=== PATIENT | female | born 1945 | race Caucasian/White ===

== ENCOUNTER 2016-12-23 16:15 | Emergency (ER) | payer OTHER ==
[~2016-12-23] VITALS: Ht 160 cm; Wt 105.2 kg
[~2016-12-23 16:15] MED LIST: ALLOPURINOL100 MG PO; ASPIR 8181 MG PO; BILBERRY PO; CARVEDILOL12.5 M1 PO; CIPRO500 MG PO; ECO81 PO; FISH OIL1000 MG PO; FLA500 PO; FLEXERIL10 MG PO; FLONS; FUROSEMIDE40 MG PO; GLIPIZIDE10 MG PO; LANTUS SOLOS100 U/M1 SC; NEU300 PO; NOR10 PO; SIMVASTATIN40 M1 PO
[2016-12-23 18:02] LABS: BASOPHIL % 0.2 % (0-2); RED CELL DISTRIBUTION WIDTH 16.2 % (11.5-14.5)
[2016-12-23 18:03] LABS: PLATELET COUNT 226 x10^3mcL (130-400)
[2016-12-23 18:12] LABS: ALBUMIN 3.6 g/dL (3.4-5.0); BILIRUBIN TOTAL 0.3 mg/dL (0.20-1.00); CALCIUM 9.2 mg/dL (8.5-10.1); CARBON DIOXIDE 25.9 mmol/L (21-32); POTASSIUM SERUM 4.1 mmol/L (3.5-5.1); TOTAL PROTEIN, SERUM 7.7 g/dL (6.4-8.2)
[2016-12-23 18:16] LABS: CREATININE SERUM 4.3 mg/dL (0.6-1.0)
[2016-12-23 19:14] VITALS: BP 175/89
== END 2016-12-23 19:14 | disposition home or self-care (01) ==
LOC: ED 16:15
PROVIDERS: Emergency Medicine
DX: R51 Headache (principal); I12.0 Hypertensive chronic kidney disease with stage 5 chronic kidney disease or end stage renal disease; N18.6 End stage renal disease; R10.84 Generalized abdominal pain; E78.5 Hyperlipidemia, unspecified; M10.9 Gout, unspecified; Z99.2 Dependence on renal dialysis; Z88.5 Allergy status to narcotic agent; Z91.048 Other nonmedicinal substance allergy status
CPT/HCPCS: J1200; J2765

== ENCOUNTER 2017-01-12 17:17 | Emergency (ER) | payer OTHER ==
[2017-01-12 20:45] VITALS: BP 186/92
== END 2017-01-12 20:56 | disposition home or self-care (01) ==
LOC: ED 17:17
DX: R51 Headache (principal); I12.0 Hypertensive chronic kidney disease with stage 5 chronic kidney disease or end stage renal disease; E11.22 Type 2 diabetes mellitus with diabetic chronic kidney disease; N18.6 End stage renal disease; Z99.2 Dependence on renal dialysis; E78.00 Pure hypercholesterolemia, unspecified; Z88.5 Allergy status to narcotic agent
CPT/HCPCS: J1200; J2765

== ENCOUNTER → 2017-05-03 | Outpatient (CLI) | payer OTHER | END | disposition home or self-care (01) | LOC: MA 12:47 | PROC: BH02ZZZ Plain Radiography of Bilateral Breasts (ICD-10-PCS; principal; 2017-05-03) | DX: Z12.31 Encounter for screening mammogram for malignant neoplasm of breast (principal) | CPT/HCPCS: G0202 ==

== ENCOUNTER 2017-07-10 11:22 | Inpatient (IN) | payer OTHER, MEDICAID ==
[~2017-07-10] VITALS: Ht 160 cm; Wt 88.9 kg
[~2017-07-10 11:22] MED LIST changes: -GLIPIZIDE10 MG PO; +GLUCOTROL10 MG
[2017-07-10 11:26] VITALS: Ht 160 cm; Wt 88.9 kg
[2017-07-10 12:18] LABS: BASOPHIL % 0.1 % (0-2); PLATELET COUNT 247 x10^3mcL (130-400)
[2017-07-10 12:20] LABS: RED CELL DISTRIBUTION WIDTH 17.7 % (11.5-14.5)
[2017-07-10 12:29] LABS: ALBUMIN 3.7 g/dL (3.4-5.0); BILIRUBIN TOTAL 0.41 mg/dL (0.20-1.00); CALCIUM 8.7 mg/dL (8.5-10.1); POTASSIUM SERUM 4.8 mmol/L (3.5-5.1); TOTAL PROTEIN, SERUM 8.1 g/dL (6.4-8.2)
[2017-07-10 14:21] LABS: T3 TOTAL 0.89 ng/mL
[2017-07-10 14:36] LABS: CHOLESTEROL/HDL RATIO 3.5; MAGNESIUM 1.5 mg/dL (1.8-2.4); PHOSPHOROUS 4.6 mg/dL (2.5-4.9)
[2017-07-10 14:43] VITALS: BP 132/69
[2017-07-10 14:49] LABS: FREE T4 0.98 ng/dL (0.76-1.46); FREE THYROXINE INDEX 2.7 ug/dL (1.4-4.5); T4(THYROXINE) 8.1 ug/dL (4.7-13.3)
[2017-07-10] MEDS ORDERED: MICARDIS40 MG (15:30)
[2017-07-10 16:08] VITALS: BP 153/59
[2017-07-10 20:34] VITALS: BP 148/66
[2017-07-11 05:12] VITALS: BP 128/54
[2017-07-11 06:28] LABS: CARBON DIOXIDE 26.8 mmol/L (21-32); MAGNESIUM 1.7 mg/dL (1.8-2.4); PHOSPHOROUS 5.8 mg/dL (2.5-4.9); POTASSIUM SERUM 4.5 mmol/L (3.5-5.1)
[2017-07-11 06:33] LABS: CREATININE SERUM 7.2 mg/dL (0.6-1.0)
[2017-07-11 06:35] LABS: BASOPHIL % 0.5 % (0-2); PLATELET COUNT 228 x10^3mcL (130-400)
[2017-07-11 07:07] LABS: RED CELL DISTRIBUTION WIDTH 17.8 % (11.5-14.5)
[2017-07-11 09:06] VITALS: BP 133/96
[2017-07-11 10:09] VITALS: BP 127/58
[2017-07-11 14:13] VITALS: BP 136/61
[2017-07-11 17:10] VITALS: BP 137/59
[2017-07-11 18:27] VITALS: BP 137/59
== END 2017-07-11 19:28 | disposition home or self-care (01) | DRG 562 ==
LOC: ED 11:22 → DU 13:15
PROVIDERS: Emergency Medicine; ADMIT Family Medicine
DX: S29.011A Strain of muscle and tendon of front wall of thorax, initial encounter (principal); K85.90 Acute pancreatitis without necrosis or infection, unspecified; J18.1 Lobar pneumonia, unspecified organism; N18.6 End stage renal disease; N17.0 Acute kidney failure with tubular necrosis; I12.0 Hypertensive chronic kidney disease with stage 5 chronic kidney disease or end stage renal disease; Z68.41 Body mass index [BMI] 40.0-44.9, adult; Z88.6 Allergy status to analgesic agent; I10 Essential (primary) hypertension; Z86.73 Personal history of transient ischemic attack (TIA), and cerebral infarction without residual deficits; E78.5 Hyperlipidemia, unspecified; E11.22 Type 2 diabetes mellitus with diabetic chronic kidney disease; Z99.2 Dependence on renal dialysis; Z95.1 Presence of aortocoronary bypass graft; I25.10 Atherosclerotic heart disease of native coronary artery without angina pectoris; E11.40 Type 2 diabetes mellitus with diabetic neuropathy, unspecified; Z90.710 Acquired absence of both cervix and uterus; Z90.49 Acquired absence of other specified parts of digestive tract; M10.9 Gout, unspecified; E66.01 Morbid (severe) obesity due to excess calories; E83.42 Hypomagnesemia; E11.65 Type 2 diabetes mellitus with hyperglycemia; Z79.82 Long term (current) use of aspirin; Z79.4 Long term (current) use of insulin
CPT/HCPCS: 82962; 83880; 84439; 87046; 87046-59; J2405; J2543; J3010; J3490; J7030; J7040; Q0092

== ENCOUNTER 2018-04-27 22:35 | Emergency (ER) | payer OTHER ==
[~2018-04-27 22:35] MED LIST changes: +GABAPENTIN100 M2 PO; +LOMOTIL1 TAB PO; +MECLIZINE HYDRO25 M1 PO; +MICARDIS40 MG; +ONDANSETRON4 M3 PO; +RENVELA800 M1 PO
[2018-04-27 22:44] VITALS: BP 145/57
== END 2018-04-28 00:03 | disposition home or self-care (01) ==
LOC: ED 22:35
DX: R05 Cough (principal); E11.22 Type 2 diabetes mellitus with diabetic chronic kidney disease; I12.0 Hypertensive chronic kidney disease with stage 5 chronic kidney disease or end stage renal disease; N18.6 End stage renal disease; E78.5 Hyperlipidemia, unspecified; Z88.5 Allergy status to narcotic agent; R11.2 Nausea with vomiting, unspecified
CPT/HCPCS: Q0162

== ENCOUNTER → 2018-06-23 | Outpatient (CLI) | payer OTHER | END | disposition home or self-care (01) | LOC: MA 08:43 | PROC: BH02ZZZ Plain Radiography of Bilateral Breasts (ICD-10-PCS; principal; 2018-06-23) | DX: Z12.39 Encounter for other screening for malignant neoplasm of breast (principal) | CPT/HCPCS: 77067 ==

== ENCOUNTER 2018-08-25 08:23 | Emergency (ER) | payer OTHER ==
[~2018-08-25] VITALS: Ht 160 cm; Wt 106.6 kg
[2018-08-25 08:37] VITALS: Ht 160 cm; Wt 106.6 kg
[2018-08-25 09:20] VITALS: BP 162/77
== END 2018-08-25 10:37 | disposition home or self-care (01) ==
LOC: ED 08:23
DX: J02.9 Acute pharyngitis, unspecified (principal); R30.0 Dysuria; I12.0 Hypertensive chronic kidney disease with stage 5 chronic kidney disease or end stage renal disease; E11.22 Type 2 diabetes mellitus with diabetic chronic kidney disease; N18.6 End stage renal disease; M10.9 Gout, unspecified; E78.5 Hyperlipidemia, unspecified; Z88.5 Allergy status to narcotic agent; Z99.2 Dependence on renal dialysis; Z86.73 Personal history of transient ischemic attack (TIA), and cerebral infarction without residual deficits
CPT/HCPCS: Q0092

== ENCOUNTER 2018-10-23 19:44 | Emergency (ER) | payer OTHER ==
[~2018-10-23] VITALS: Ht 160 cm; Wt 107.0 kg
[2018-10-23 19:51] VITALS: Ht 160 cm; Wt 107.0 kg
[2018-10-23 21:04] LABS: BASOPHIL % 0.6 % (0-2); PLATELET COUNT 229 x10^3mcL (130-400)
[2018-10-23 21:05] LABS: RED CELL DISTRIBUTION WIDTH 16.5 % (11.5-14.5)
[2018-10-23 21:19] LABS: ALBUMIN 3.9 g/dL (3.4-5.0); BILIRUBIN TOTAL 0.33 mg/dL (0.20-1.00); CALCIUM 8.5 mg/dL (8.5-10.1); CARBON DIOXIDE 29.9 mmol/L (21-32); POTASSIUM SERUM 5.2 mmol/L (3.5-5.1); TOTAL PROTEIN, SERUM 7.6 g/dL (6.4-8.2)
[2018-10-23 21:21] LABS: CREATININE SERUM 8.4 mg/dL (0.6-1.0)
[2018-10-23 22:21] VITALS: BP 154/59
== END 2018-10-23 22:21 | disposition home or self-care (01) ==
LOC: ED 19:44
PROVIDERS: Emergency Medicine
DX: R06.00 Dyspnea, unspecified (principal); J98.01 Acute bronchospasm; E11.22 Type 2 diabetes mellitus with diabetic chronic kidney disease; I12.0 Hypertensive chronic kidney disease with stage 5 chronic kidney disease or end stage renal disease; N18.6 End stage renal disease; Z88.5 Allergy status to narcotic agent; Z98.890 Other specified postprocedural states
CPT/HCPCS: 36415; 83880; J7613; Q0092

== ENCOUNTER 2019-01-08 12:55 | Inpatient (IN) | payer OTHER ==
[~2019-01-08] VITALS: Ht 160 cm; Wt 110.4 kg
[~2019-01-08 12:55] MED LIST changes: -GLUCOTROL10 MG; +GLUCOTROL10 MG PO
--- NOTE | 2019-01-08 13:18 | NUR ---
PT IN ED FOR DIZZINESS S/P FALL IN BATHROOM X3 DAYS. STS LOSS BALANCE WHILE TRYING TO TAKE OFF PANTS, -LOC. PT SPEAKING IN CLEAR FULL SENTENCES, AWAKE ALERT. AMBULATES WITH CANE.
--- NOTE | 2019-01-08 13:44 | NUR ---
DR. GAINES WAS BEDSIDE TO EXAMINE PT.
--- NOTE | 2019-01-08 13:57 | NUR ---
PT WAS TAKEN TO RADIOLOGY.
[2019-01-08 15:32] LABS: PLATELET COUNT 215 x10^3mcL (130-400); RED CELL DISTRIBUTION WIDTH 17.1 % (11.5-14.5)
[2019-01-08 15:34] LABS: SEGMENTED NEUTROPHILS 64.1 % (37-75)
[2019-01-08 15:35] LABS: BASOPHIL 0.6 % (0-2); MONOCYTE 7.6 % (0-7); rbc morphology (normal/abnorm) NORMAL (NORMAL)
[2019-01-08 15:36] LABS: PLATELET MORPHOLOGY NORMAL
--- NOTE | 2019-01-08 17:00 | NUR ---
PT STATED HUNGRY. SANDWITCH WAS OFFERED. PT ATE WELL.
[2019-01-08 17:26] LABS: ALBUMIN 3.6 g/dL (3.4-5.0); ALKALINE PHOSPHATASE 74 U/L (46-116); ALT/SGPT 19 U/L (14-59); AST/SGOT 9 U/L (15-37); BILIRUBIN TOTAL 0.3 mg/dL (0.20-1.00); CALCIUM 8.5 mg/dL (8.5-10.1); CARBON DIOXIDE 25.3 mmol/L (21-32); CHLORIDE SERUM 102 mmol/L (98-107); SODIUM SERUM 143 mmol/L (136-145); TOTAL PROTEIN, SERUM 7.1 g/dL (6.4-8.2)
[2019-01-08 17:32] LABS: CREATININE SERUM 12.3 mg/dL (0.6-1.0); GLUCOSE SERUM 56 mg/dL (74-106); POTASSIUM SERUM 6.4 mmol/L (3.5-5.1)
--- NOTE | 2019-01-08 19:13 | NUR ---
REPORT RECIEVED FROM REANNA VILA. PT A&O X4, RECIEVING BRETHING TREATMENT. PT ANSWERING QUESTIONS APPROPRIATELY, SPEAKING IN FULL SENTENCES. PT REPORTS 8/10 PAIN IN LEFT LEG AND LOWER BACK. PT SITTING ON BED, IN POSITION OF COMFORT. CALL LIGHT W/IN REACH. NAD NOTED AT THIS TIME.
[2019-01-08] MEDS ORDERED: AMLODIPINE-OLM1 EAC1 (19:42)
--- NOTE | 2019-01-08 19:58 | NUR ---
MURALI SEARCH MARKETING SPECIALIST CALLED TO INQUIRE ABOUT PT STATUS. INFORMED MURALI OF ADMIT ORDER, AND WILL CALL BACK WITH RM ASSIGNMENT WHEN PT GOES UPSTAIRS. [phone]
--- NOTE | 2019-01-08 20:06 | NUR ---
REPORT GIVEN TO LEANNE VILA
--- NOTE | 2019-01-08 20:24 | NUR ---
RECEIVED PT FROM ED VIA GUERNEY, CAME IN DUE TO DIZZINESS. AAOX4. DENIES HEADACHE/DIZZINESS. ABLE TO FOLLOW COMMANDS. NO SOB NOTED, LUNG SOUNDS DIMINISHED, O2 SAT=92%, RA. DENIES CHEST PAIN/PRESSURE, SR W/ ELEVATED T WAVE. DENIES ABDOMINAL PAIN/NAUSEA/VOMITING. PT WENT TO THE BATHROOM HAVING LOOSE STOOLS, STATED THAT SHE JUST RECEIVED KAYEXALATE AT ED. OLIGURIC. W/ RUE AV FISTULA, BRUIT AND THRILL PRESENT. W/ RUE ECCHMOSIS, MANAGER PHP. W/ +1 EDEMA ON BLE. PULSES ARE PALPABLE. INSTRUCTED PT TO PULL THE BATHROOM CALL BUTTON IF SHE'S DONE TO BE ASSISTED BACK TO BED. PT VERBALIZES UNDERSTANDING. ENDORSED TO PRIMARY NURSE LEANNE FOR CONTINUITY OF CARE
[2019-01-08 20:53] VITALS: BP 176/78
[2019-01-08 20:55] VITALS: Ht 160 cm; Wt 110.4 kg
--- NOTE | 2019-01-08 21:11 | NUR ---
DR. EMERSON IS PAGED FOR ADMIT ORDERS. WAITING FOR CALLBACK
--- NOTE | 2019-01-08 21:20 | NUR ---
RECEIVED A CALLBACK FROM DR. EMERSON FOR ADMIT ORDERS, ORDERS CARRIED OUT. PATIENT IS PLACED ON 2LPM/NC, O2 SAT=96%. PRIMARY NURSE LEANNE MADE AWARE OF ABOVE
--- NOTE | 2019-01-09 00:18 | NUR ---
PT RESTING COMFORTABLY IN BED. ENVIRONMENTAL FIELD SERVICES TECHNICIAN AT BEDSIDE PERFORMING HD PER ORDERS. NO ACUTE DISTRESS NOTED. EVEN AND UNLABORED RESPIRATIONS ON 2LNC. ON TELE #1 READING SR 68 WITH SLIGHTLY ELEVATED T WAVE. IVL INTACT. BED IN LOWEST POSITION. SIDE RAILS UP X2. CALL LIGHT WITHIN REACH. WILL CONTINUE TO MONITOR.
--- NOTE | 2019-01-09 02:10 | NUR ---
MADE AWARE BY MT, PT HAVING OCCASIONAL PAC'S. PT CURRENTLY RECEIVING DIALYSIS. NO ACUTE DISTRESS NOTED. NO C/O CHEST PAIN OR PALPITATIONS. LAST DIALYSIS BP: 161/63, HR: 69 BPM. ON 2LNC. NO C/O SOB. WILL INFORM AND CONTINUE TO MONITOR.
--- NOTE | 2019-01-09 02:30 | NUR ---
DIALYSIS COMPLETE. 2.3L TOTAL OUTPUT. PER CASING FLUSHER, DIALYSIS STOPPED SHORT DUE TO PT C/O CRAMPS TO LLE. PRESSURE DRESSING APPLIED BY CASING FLUSHER. DRESSING CDI. NO BLEEDING NOTED. PT RESTING COMFORTABLY IN BED. BED IN LOWEST POSITION. SIDE RAILS UPX2. CALL LIGHT WITHIN REACH. WILL CONTINUE TO MONITOR.
[2019-01-09 02:45] VITALS: BP 129/52
--- NOTE | 2019-01-09 02:45 | NUR ---
PT C/O CRAMPS TO LLE AND BACK PAIN 03/04. WILL MEDICATE PER EMAR. CURRENT VS: 80 BPM, 20 RR, 129/52, 95% ON 3LNC. WILL CONTINUE TO MONITOR.
--- NOTE | 2019-01-09 03:15 | NUR ---
DR. EMERSON MADE AWARE OF PT DIALYSIS OUTPUT, C/O CRAMPS TO LLE AND BACK PAIN, AND OCCASIONAL PAC'S ON TELEMETRY. ORDERED LAB FOR MAGNESIUM AND ULTRAM PRN FOR PAIN. WILL CONTINUE TO MONITOR.
[2019-01-09 05:28] VITALS: BP 153/58
[2019-01-09 06:34] LABS: BASOPHIL % 0.3 % (0-2); PLATELET COUNT 183 x10^3mcL (130-400)
--- NOTE | 2019-01-09 06:37 | NUR ---
FASTING BLOOD SUGAR: 49, RECHECKED 43. PT ASYMPTOMATIC. D10 250ML @250ML/HR GIVEN PER EMAR. APPLE JUICE AND SANDWICH GIVEN. BLOOD SUGAR AFTER D10 FINISHED: 153. PT RESTING COMFORTABLY IN BED. NO ACUTE DISTRESS NOTED. TOLERATING ON 3LNC. ON TELE #1 READING SR78 WITH SLIGHTLY ELEVATED TWAVE AND OCC PAC'S. HD COMPLETE WITH 2.3L OUTPUT, STOPPED SHORT DUE TO C/O LLE CRAMPING. ALL NEEDS TENDED TO AND MET. ALL SCHEDULED MEDICATIONS GIVEN. BACK PAIN MEDICATED PER EMAR. BED IN LOWEST POSITION. SIDE RAILS UPX2. CALL LIGHT WITHIN REACH. WILL ENDORSE TO ONCOMING SHIFT.
[2019-01-09 06:50] LABS: RED CELL DISTRIBUTION WIDTH 17.5 % (11.5-14.5)
[2019-01-09 07:23] LABS: CALCIUM 9.1 mg/dL (8.5-10.1); CARBON DIOXIDE 23.3 mmol/L (21-32); CHLORIDE SERUM 104 mmol/L (98-107); MAGNESIUM 1.6 mg/dL (1.8-2.4); POTASSIUM SERUM 4.3 mmol/L (3.5-5.1); SODIUM SERUM 149 mmol/L (136-145)
--- NOTE | 2019-01-09 07:25 | NUR ---
RECEIVED PT SITTING UP IN THE CHAIR AND SLEEPING. EDUCATED PT RISK OF FALLING. ASSISTED PT LAY BACK IN THE BED. ASSESSED AND DOCUMENTED. DENIES PAIN THIS TIME. SAFTEY PRECAUTIONS ARE IN PLACE. WILL MONITOR.
[2019-01-09 07:29] LABS: GLUCOSE SERUM 45 mg/dL (74-106)
[2019-01-09 07:30] LABS: CREATININE SERUM 8.2 mg/dL (0.6-1.0)
[2019-01-09 08:50] VITALS: BP 146/55
--- NOTE | 2019-01-09 10:30 | NUR ---
CAME AND SPOKE WITH PT. INFORMED ABOUT PT MG=1.6 AND ALSO HE IS AWARE ABOUT ALL OTHER ABNORMAL LABS. NO NEW ORDER RECEIVED THIS TIME.
[2019-01-09 13:13] VITALS: BP 142/85
--- NOTE | 2019-01-09 14:00 | NUR ---
PT RESTING IN BED COMFORTABLY. NO SOB NOTED. DENIES PAIN. FAMILY AT BEDSIDE.
[2019-01-09 18:43] VITALS: BP 142/55
--- NOTE | 2019-01-09 19:15 | NUR ---
PT RESTING IN BED COMFORTABLY. DENIES PAIN. STABLE. NO SOB NOTED. GAVE REPORT TO LEAD ELECTRICIAN NURSE.
--- NOTE | 2019-01-09 19:26 | NUR ---
RECIEVED PT RESTING IN CHAIR AT BEDSIDE WITH NO ACUTE DISTRESS AT THIS TIME, PT IS DROWSY BUT EASILY AROUSABLY TO VERBAL STIMULI PT IS A/OX4 NO COMPLAINTS OF ESCOBAR OR DIZZINESS, ASSESSMENT PERFORMED AT THIS TIME, PT DENIES CHEST PAIN AT THIS TIME, PT DENIES SOB AT THIS TIME, SAFETY PRECAUTIONS IN PLACE INSTRUCTED TO USE CALL LIGHT IF IN NEED, CALL LIGHT IN REACH, WILL CONTINUE TO MONITOR
[2019-01-09 20:50] VITALS: BP 155/60
--- NOTE | 2019-01-09 22:15 | NUR ---
PT SLEEPING IN CHAIR AT THIS TIME, EASILY AROUSABLE, PT DENIES CHEST PAIN AND SOB AT THIS TIME, PT DENIES DIZZONESS OR ESCOBAR, SAFETY PRECAUTIONS IN PLACE, WILL CONTINUE TO MONITOR
--- NOTE | 2019-01-10 00:08 | NUR ---
PT SLEEPING IN BED WITH NO ACUTE RESPIRATORY DISTRESS NOTED AT THIS TIME. RESPIRATIONS EVEN AND UNLABORED, SAFETY PRECAUTIONS IN PLACE WILL CONTINUE TO MONITOR.
--- NOTE | 2019-01-10 02:20 | NUR ---
PT SLEEPING IN BED WITH NO SIGNS OF DISTRESS AT THIS TIME, SAFETY PECAUTIONS IN PLACE WILL CONTINUE TO MONITOR
[2019-01-10 04:59] VITALS: BP 111/45
--- NOTE | 2019-01-10 05:14 | NUR ---
PT SLEPT THROUGH MOST OF THE NIGHT AND HAD ONE EPISODE OF PAIN THAT WAS TREATED WITH PRN ULTRAM PER ORDER (SEE MAR), PT HAD NO EPISODES OF ACUTE DISTRESS THROUGH SHIFT, NC WAS LOWERED FROM 2.5 L TO 1.5 AND PATIENT SATURATION REMAINED AT 96%, SAFETY PRECAUTIONS MAINTAINED, WILL CONTINUE TO MONITOR AND ENDORSE CARE TO ONCOMING RN
[2019-01-10 06:32] LABS: BASOPHIL % 0.4 % (0-2); PLATELET COUNT 205 x10^3mcL (130-400)
[2019-01-10 06:38] LABS: ALBUMIN 3.4 g/dL (3.4-5.0); ALKALINE PHOSPHATASE 75 U/L (46-116); ALT/SGPT 16 U/L (14-59); AST/SGOT 15 U/L (15-37); BILIRUBIN TOTAL 0.34 mg/dL (0.20-1.00); CALCIUM 8.7 mg/dL (8.5-10.1); CARBON DIOXIDE 26.2 mmol/L (21-32); CHLORIDE SERUM 102 mmol/L (98-107); GLUCOSE SERUM 88 mg/dL (74-106); MAGNESIUM 1.6 mg/dL (1.8-2.4); SODIUM SERUM 141 mmol/L (136-145); TOTAL PROTEIN, SERUM 7.1 g/dL (6.4-8.2)
--- NOTE | 2019-01-10 06:48 | NUR ---
CALLED AND INFORMED DR STERLING OF POTASSIUM OF 5.6, AND CREATININE OF 10.2 NO NEW ORDERS
[2019-01-10 06:49] LABS: CREATININE SERUM 10.2 mg/dL (0.6-1.0); POTASSIUM SERUM 5.6 mmol/L (3.5-5.1)
[2019-01-10 06:51] LABS: RED CELL DISTRIBUTION WIDTH 17.1 % (11.5-14.5)
--- NOTE | 2019-01-10 06:55 | NUR ---
POTASSIUM CAME BACK 5.6 AND CREATININE CAME BACK 10.2, CALLED SILVINA NORIEGA TO ENSURE DIALYSIS WAS GOING TO BE DONE FOR HER TODAY THEY CONFIRMED THEY WILL BE IN TODAY FOR DIALYSIS WILL ENDORSE TO ONCOMING JULITO
--- NOTE | 2019-01-10 07:20 | NUR ---
RECEIVED PT SITTING UP IN THE CHAIR. ASSESSED AND DOCUMENTED. DENIES ANY PAIN. NO SOB NOTED. SAFTEY PRECAUTIONS ARE IN PLACE. WILL MONITOR.
[2019-01-10 08:59] VITALS: BP 141/53
--- NOTE | 2019-01-10 09:28 | NUR ---
PT REMAINS STABLE. GAVE REPORT TO RN RICHARD.
--- NOTE | 2019-01-10 09:29 | NUR ---
ASSUMED CARE FROM BRIANNA VILA. PT SITTING COMFORTABLY IN CHAIR. ALL NEEDS MET. SALINE LOCK TO L WRIST IS PATENT AND INTACT. NO REDNESS OR PAIN. TELE # [address] PT DENIES CHEST PAIN. PT ON O2 1.5L NC. NO C/O SOB AND NO DISTRESS NOTED. PER BRIANNA VILA, PT TO HAVE DIALYSIS TODAY. NO ORDERS SEEN. WILL FOLLOW UP. ALL QUESTIONS AND CONCERNS ADDRESSED.
--- NOTE | 2019-01-10 10:08 | NUR ---
BLOOD SUGAR WAS CHECKED BEFORE LANTUS ADMINISTRATION. GLUCOSE IS 242.
--- NOTE | 2019-01-10 10:08 | NUR ---
DR STERLING IN TO SEE AND ASSESS PATIENT. DISCUSSED DISCHARGE TODAY AFTER DIALYSIS. PT VERBALIZED UNDERSTANDING AND ALL QUESTIONS AND CONCERNS WERE ADDRESSED.
[2019-01-10 12:33] VITALS: BP 148/59
--- NOTE | 2019-01-10 13:36 | NUR ---
REPORT GIVEN TO BRIANNA VILA. PT RESTING COMFORTABLY IN CHAIR. PT AWAITING DIALYSIS. ALL QUESTIONS AND CONCERNS ADDRESSED.
--- NOTE | 2019-01-10 13:37 | NUR ---
RECEIVED PT FROM JULITO RAMOS. YASMEEN. NO DISTRESS NOTED.
--- NOTE | 2019-01-10 14:50 | NUR ---
HD NURSE CAME AND STARTED HD. PT IS STABLE.
--- NOTE | 2019-01-10 18:00 | NUR ---
HD FINISHED WITH 2.5L OUT. PER HD NURSE BP IS 157/59. WILL RECHECK. PT IS STABLE. DENIES ANY PAIN.
[2019-01-10 18:39] VITALS: BP 191/82
--- NOTE | 2019-01-10 18:45 | NUR ---
PT BP IS 191/82. AMLODIPINE 10MG PO AND COREG 12.5MG GIVEN PER ORDER, INFORMED . HE SAID RECHECK THE BP AN HOUR AFTER THE MEDICATION IF THE SBP IS BELOW 170 PT CAN GO HOME.
--- NOTE | 2019-01-10 19:10 | NUR ---
PT REMAINS STABLE. DENIES PAIN THIS TIME. REPORT GIVEN TO INGREDIENT SCALER NURSE.
[2019-01-10 20:00] VITALS: BP 148/41
[2019-01-10 20:18] VITALS: BP 148/41
--- NOTE | 2019-01-10 22:51 | NUR ---
PT DC TO HOME. PICKED UP BY FAMILY. NO SOB ON ROOM AIR. NO C/O CHEST PAIN. NO DISTRESS NOTED. TELE#1 REMOVED AND RETURNED TO WARP SPLITTER. DC IV, CATHETER INTACT. NO BLEEDING. DISCHARGE PAPER/INSTRUCTIONS EXPLAINED AND GIVEN TO PT.
== END 2019-01-10 22:51 | disposition home or self-care (01) | DRG 682 ==
LOC: ED 12:55 → DU 19:25
PROVIDERS: Emergency Medicine; Internal Medicine; ADMIT Internal Medicine Pulmonary Disease
PROC: 5A1D70Z Performance of Urinary Filtration, Intermittent, Less than 6 Hours Per Day (ICD-10-PCS; principal; 2019-01-08)
PROC: 5A1D70Z Performance of Urinary Filtration, Intermittent, Less than 6 Hours Per Day (ICD-10-PCS; 2019-01-10)
DX: I12.0 Hypertensive chronic kidney disease with stage 5 chronic kidney disease or end stage renal disease (principal); J96.01 Acute respiratory failure with hypoxia; N18.6 End stage renal disease; J45.901 Unspecified asthma with (acute) exacerbation; Z68.41 Body mass index [BMI] 40.0-44.9, adult; E87.5 Hyperkalemia; E66.01 Morbid (severe) obesity due to excess calories; Z99.2 Dependence on renal dialysis; Z91.15 Patient's noncompliance with renal dialysis
CPT/HCPCS: 82962; 97116-GP; 97530-GP; B4164; G0378; J1815; J7613; Q0092

== ENCOUNTER 2019-02-03 05:47 | Inpatient (IN) | payer OTHER ==
[~2019-02-03] VITALS: Ht 165.1 cm; Wt 115.4 kg
[~2019-02-03 05:47] MED LIST changes: +AMLODIPINE-OLM1 EAC1
[2019-02-03 05:56] VITALS: Ht 165.1 cm; Wt 115.4 kg
--- NOTE | 2019-02-03 05:59 | NUR ---
PT BIB [facility] FOR C/O OF GENERALIZED WEAKNESS THAT STARTED THIS AM. PER MEDICS PT WAS PICKED UP FROM A DIALYSIS CENTER BECAUSE SHE WAS UNABLE TO GET OUT OF HER CAR. PER MEDICS PT HAS MISS HER LAST 2 DIALYSIS APPOINTMENTS BECAUSE SHE WAS ON VACATION. PT NORMALLY GOES TO DIALYSIS MWF. PER MEDICS THEY HEARD EXPIRATORY WHEEZES AND PT HAD A O2 SAT OF 85% ON SCENE SO THEY GAVE BREATHING TREATMENT TO PT AND HER SATS RAISED TO 98%. PTS LUNG SOUNDS CLEAR IN ALL FOLEY WITH AUSCULTATION. PT DOES NOT COMPLAIN OF ANY PAIN AT THIS TIME BUT REPORTS NUMBNESS TO HER L FOOT, CSM INTACT. PT HAND GROVE SUPERINTENDENT WEAK HOWEVER EQUAL. NO FACIAL ASYMMETRY NOTED. PT IS A/O X4. RESP ARE EQUAL AND UNLABORED. NO ACUTE DISTRESS NOTED. FAMILY AT BEDSIDE.
--- NOTE | 2019-02-03 07:15 | NUR ---
PT STATES THAT SHE DOES NOT PRODUCE URINE ANYMORE, MD LOCKHART MADE AWARE.
--- NOTE | 2019-02-03 07:16 | NUR ---
RECEIVED REPORT FROM JULITO VO
[2019-02-03 07:36] LABS: BASOPHIL % 0.2 % (0-2); PLATELET COUNT 208 x10^3mcL (130-400)
[2019-02-03 07:37] LABS: RED CELL DISTRIBUTION WIDTH 17.5 % (11.5-14.5)
[2019-02-03] MEDS ORDERED: GOOD SENSE ASPI81 M3 PO (07:38)
[2019-02-03] MEDS ORDERED: LIDODERM51 (07:39)
[2019-02-03] MEDS ORDERED: NITROGLYCERIN0.4 MG SL (07:39)
[2019-02-03 07:49] LABS: ALBUMIN 3.6 g/dL (3.4-5.0); ALKALINE PHOSPHATASE 103 U/L (46-116); ALT/SGPT 19 U/L (14-59); AST/SGOT 14 U/L (15-37); BILIRUBIN TOTAL 0.27 mg/dL (0.20-1.00); CARBON DIOXIDE 20.3 mmol/L (21-32); CHLORIDE SERUM 100 mmol/L (98-107); GLUCOSE SERUM 140 mg/dL (74-106); SODIUM SERUM 140 mmol/L (136-145); TOTAL PROTEIN, SERUM 7.6 g/dL (6.4-8.2)
--- NOTE | 2019-02-03 08:02 | NUR ---
LAB CALLED AND STS POTASSIUM LEVEL WAS 9.[address] LOCKHART, HAVE LAB REDRAW
[2019-02-03 08:27] LABS: CREATININE SERUM 14.3 mg/dL (0.6-1.0)
[2019-02-03 08:37] LABS: BILIRUBIN DIRECT 0.12 mg/dL (0.0-0.2); MAGNESIUM 2.3 mg/dL (1.8-2.4)
--- NOTE | 2019-02-03 08:45 | NUR ---
PATIENT RESTING AT BEDSIDE IN NAD. FAMILY AT BEDSIDE.
[2019-02-03 08:55] LABS: POTASSIUM SERUM 9.1 mmol/L (3.5-5.1)
--- NOTE | 2019-02-03 09:15 | NUR ---
PATIENT O2 SATS IN MID 80S VS NC, APPLIED NON BREATHER 10 ML, PATIENT TOLERATING WELL
--- NOTE | 2019-02-03 10:43 | NUR ---
MULTIPLE ATTEMPTS AT ADDITIONAL IV WITH NO SUCCESS.
--- NOTE | 2019-02-03 10:49 | NUR ---
RT AT BEDSIDE
--- NOTE | 2019-02-03 11:10 | NUR ---
REPORT OFF TO LENKA, RN
[2019-02-03 11:51] VITALS: BP 124/97
--- NOTE | 2019-02-03 12:28 | NUR ---
DR. OSPINA CALLED AT OFFICE AT THIS TIME, FOR PENDING ORDERS REGARDING DIALYSIS. KARLOS, AT OFFICE WILL NOTIFY DR AT THIS TIME. WILL AWAIT ORDERS.
--- NOTE | 2019-02-03 13:22 | NUR ---
DR. HERRON AT BEDSIDE, ALL UPDATES PROVIDED. NO FURTHER ORDERS AT THIS TIME.
--- NOTE | 2019-02-03 13:25 | NUR ---
DR. OSPINA CALLED AT THIS TIME, WITH FOLLOW UP ON DIALYSIS FOR PATIENT. PER DR. OSPINA DIALYSIS WAS ORDERED AT 9 AM, HE WILL CALL AND FOLLOW UP WITH COOL.
--- NOTE | 2019-02-03 13:57 | NUR ---
PATIENT STARTED TO DESTAURATE 87-89%. NASAL OXIMIZER TITRATED UP FROM 5 TO 6 LPM. CURRENT 02 SAT 93%. NO SIGNS OF DISTRESS NOTED. WILL CONTINUE TO MONITOR.
[2019-02-03 15:16] VITALS: BP 106/42
[2019-02-03 15:54] LABS: CALCIUM 8.9 mg/dL (8.5-10.1); CHLORIDE SERUM 101 mmol/L (98-107); GLUCOSE SERUM 249 mg/dL (74-106); SODIUM SERUM 142 mmol/L (136-145)
[2019-02-03 15:57] LABS: POTASSIUM SERUM 5.6 mmol/L (3.5-5.1)
[2019-02-03 15:58] LABS: CREATININE SERUM 8.1 mg/dL (0.6-1.0)
--- NOTE | 2019-02-03 16:01 | NUR ---
AT BEDSIDE, ALL UPDATES PROVIDED. DR. OSPINA WANTED TO SPEAK TO FAMILY, CALLED KAT (DAUGHTER) AT THIS TIME.
--- NOTE | 2019-02-03 16:02 | NUR ---
PATIENTS CURRENT LABS: K: 5.6, BUN: [address] CREAT[address] OSPINA MADE AWARE. NO FURTHER ORDERS AT THIS TIME.
--- NOTE | 2019-02-03 16:06 | NUR ---
KAT, DAUGHTER CALLED AT THIS TIME. DR OSPINA GAVE DAUGHTER UPDATE ON THE PATIENTS SITUATION BEING UNACCEPTABLE, AND THE PATIENT SHOULD NOT MISS ANYMORE DIALYSIS, BECAUSE THIS CAN LEAD TO CARDIAC ISSUES.
--- NOTE | 2019-02-03 16:53 | NUR ---
DIALYSIS DONE AT THIS TIME, 2.5 REMOVED. PATIENT STABLE, WILL CONTINUE TO MONITOR.
--- NOTE | 2019-02-03 17:03 | NUR ---
PER DIALYSIS NURSE, PATIENT HAD BLEEDING FROM THEIR ACCESS SITE. PER DIALYSIS NURSE, HE REINFORCED THE SITE. PATIENT CURRENTLY STABLE. WILL CONTINUE TO MONITOR PATIENT.
[2019-02-03 19:30] VITALS: BP 137/50
--- NOTE | 2019-02-03 19:30 | NUR ---
REC'D REPORT FROM ROBERTO VILA TO ASSUME CARE. PT IS A/O X4, SPEECH CLEAR AND APPROPRIATE. PERRLA NOTED. EENT FREE OF DISCHARGE. RESPS E/U, CHEST RISE EQUAL AND SYMMETRICAL. LUNG SOUNDS CTA. O2 6 LPM VIA OXYMIZER. GROOVER AND STRIPER OPERATOR IN PLACE SHOWING NSR, HR 98. S1 S2 AUSCULTATED. CHEST WALL STABLE. DENIES ANY CP, SYNCOPE, OR DIZZINESS. PULSES PALPABLE X4. CAP REFILL < 3 SECS. BUE TRACE EDEMA NOTED.ABD ROUND, SOFT, NONTENDER TO TOUCH. BOWEL SOUNDS ACTIVE. DENIES ANY N/V.PT ON HEMODIALYSIS, REC'D TODAY WITH 2.5 L REMOVED. RFA AV SHUNT IN PLACE, (+) BRUIT/THRILL NOTED.SKIN INTACT. WARM DRY TO TOUCH. IV TO L FINGER INTACT AND PATENT, SL. PT CALM AND COOPERATIVE. FAMILY MEMBERS AT BEDSIDE. TURNED AND REPOSITIONED WITH ASSIST. ALL NEEDS MET AT THIS TIME. WILL CONTINUE TO MONITOR.
--- NOTE | 2019-02-03 20:30 | NUR ---
PT STS HAVING PAIN ON HER BUTTOCK AREA. PT TURNED AND REPOSITIONED WITH ASSIST. FLOATED WITH 2 PILLOWS. PT VERBALIZED FEELING RELIEF.
[2019-02-03 23:17] VITALS: BP 126/51
--- NOTE | 2019-02-03 23:30 | NUR ---
PT WITH C/O DRY COUGH WITH ITCHY THROAT. SPOKE WITH DR BUTLER, TELEPHONE ORDER GIVEN FOR CEPACOL 15MG 2 TABS Q4H PRN FOR COUGH. TELEPHONE ORDER READ BACK. DR BUTLER STATES OKAY TO TRANSFER PT TO [facility] IF NEEDED.
--- NOTE | 2019-02-04 01:30 | NUR ---
PT AWAKE WITH DRY COUGH, GIVEN 2ND CEPACOL LOZENGE AT THIS TIME. PT STS FEELING RELIEF.
[2019-02-04 03:17] VITALS: BP 129/53
--- NOTE | 2019-02-04 05:00 | NUR ---
LAB AT BEDSIDE
[2019-02-04 05:01] LABS: BASOPHIL % 0.4 % (0-2); PLATELET COUNT 212 x10^3mcL (130-400); RED CELL DISTRIBUTION WIDTH 17.5 % (11.5-14.5)
[2019-02-04 05:24] LABS: CALCIUM 9.4 mg/dL (8.5-10.1); CARBON DIOXIDE 26.7 mmol/L (21-32); CHLORIDE SERUM 99 mmol/L (98-107); GLUCOSE SERUM 157 mg/dL (74-106); MAGNESIUM 2.2 mg/dL (1.8-2.4); SODIUM SERUM 139 mmol/L (136-145)
[2019-02-04 05:26] LABS: CREATININE SERUM 10.3 mg/dL (0.6-1.0)
--- NOTE | 2019-02-04 06:10 | NUR ---
CALLED DR OSPINA ([facility]PH[facility]) REPORTED ELEVATED K+, BUN/CREAT LEVELS. TELEPHONE ORDER GIVEN FOR DIALYSIS TODAY. ORDER NOTED AND CARRIED OUT.
--- NOTE | 2019-02-04 06:19 | NUR ---
[facility] CALLED AND SPOKE WITH SILVINA, MADE AWARE REGARDING HD ORDERED FOR TODAY.
[2019-02-04 07:45] VITALS: BP 117/37
--- NOTE | 2019-02-04 08:16 | NUR ---
DR. STERLING AT BEDSIDE. ALL UPDATES PROVIDED, PER DR. STERLING, DIALYSIS TO BE DONE TODAY. REPEAT K+ DRAW AFTER DIALYSIS, IF PT K+ LOWERED PT MAY GO UPSTAIRS. NO FURTHER ORDERS AT THIS TIME. WILL CONTINUE TO MONITOR.
--- NOTE | 2019-02-04 09:18 | NUR ---
REPORT GIVEN TO JULITO BULLOCK AT THIS TIME. ALL QUESTIONS ANSWERED.
--- NOTE | 2019-02-04 11:41 | NUR ---
DONKEY ENGINE FIRER/FIREMAN DR. OSPINA AT BEDSIDE TALKING WITH PT. REINFORCED IMPORTANCE OF CONSISTENT DIALYSIS. AWAITING DIALYSIS AT THIS TIME.
--- NOTE | 2019-02-04 11:54 | NUR ---
PERSONAL FITNESS MANAGER AT BEDSIDE FOR HD. VS: HR 64, SPO2 93, BP 117/37 (62), RR 20, T 98.5.
[2019-02-04 12:00] VITALS: BP 117/37
[2019-02-04 16:00] VITALS: BP 101/61
--- NOTE | 2019-02-04 16:00 | NUR ---
2.4 L DIALYZED OUT TODAY.
[2019-02-04 16:59] LABS: CALCIUM 9.2 mg/dL (8.5-10.1); CARBON DIOXIDE 29.9 mmol/L (21-32); CHLORIDE SERUM 100 mmol/L (98-107); GLUCOSE SERUM 131 mg/dL (74-106); POTASSIUM SERUM 4.5 mmol/L (3.5-5.1); SODIUM SERUM 143 mmol/L (136-145)
--- NOTE | 2019-02-04 17:40 | NUR ---
REPORT GIVEN TO ZANE VILA ON MST. PT GOING TO BED 251A.
--- NOTE | 2019-02-04 17:44 | NUR ---
PT AOX4, ABLE TO MAKE NEEDS KNOWN. SPEECH IS APPROPRIATE AND CLEAR, NO SLUR OR FACIAL DROOP. NO DISCHARGE EENT, TRACHEA MIDLINE, NO JVD NOTED. PT ON OXYMIZER AT 4 L/MIN, BREATHING E/U. CHEST EXPANSION SYMMETRIC. LUNG SOUNDS CLEAR BUL, DIM BLL. RADIAL AND PEDAL PULSES PALPABLE X4 LIMBS, S1S2 PRESENT ON AUSCULTATION. CAP REFILL <3 SEC, TRACE EDEMA BUE. PT HAS PIV ON L HAND BY PINKY, FLUSHES AND DRAWS BACK. NO IV FLUIDS RUNNING. PT HAS GENERALIZED WEAKNESS AND REPORTS THAT HER HANDS FEEL "TWITCHY". PT IS ON A RENAL DIET, TOLERATING WELL. APPETITE IS NORMAL. BOWEL SOUNDS ARE ACTIVE ALL QUADRANTS, AND ABDOMEN IS SOFT AND ROUND. NO BM THIS SHIFT. PT IS ANURIC AND DEPENDENT ON HEMODIALYSIS. PT DENIES VAGINAL PAIN/BLEEDING/SWELLING OR OTHER ABNORMALITIES. SKIN IS WARM, DRY, AND INTACT. SKIN COLOR IS WITHIN NORMAL LIMITS FOR ETHNICITY. FAMILY HAS BEEN AT BEDSIDE THIS AFTERNOON, AND PT REPORTS HAVING GOOD SUPPORT.
[2019-02-04 18:28] VITALS: BP 120/54
--- NOTE | 2019-02-04 18:28 | NUR ---
RECEIVED PATIENT FROM ICU NURSE VIA BED. PATIENT IS AWAKE, ALERT AND ORIENTED. TELE#10, SR, HR 80. DENIES CHEST PAIN. PATIENT TRANSPORTED ON ROOM AIR, PATIENT PLACED ON OXYMIZER 4L, O2 SAT 97%, DENIES SOB. IV NOTED TO LEFT HAND, #24, SALINE LOCKED, NO S/S ERYTHEMA AT SITE. AV SHUNT NOTED TO RFA, WITH DRESSING INTACT. PATIENT ORIENTED TO ROOM. FALL PREC IN PLACE. WILL CONTINUE PLAN OF CARE.
--- NOTE | 2019-02-04 19:57 | NUR ---
PT CURRENTLY RESTING IN BED, NO ACUTE DISTRESS. A/O X4. TELE #10 SHOWING SINUS RHYTHM, DENIES CHEST PAIN. PULSES PALPABLE IN ALL EXTREMITIES, NO EDEMA NOTED. LUNG SOUNDS DIMINISHED BILATERALLY, DENIES SOB. O2 VIA OXYMIZER AT 4L. BOWEL SOUNDS ACTIVE, LAST BM 02/03/19, DIARRHEA. ANURIC. AV SHUNT TO RFA. HD 02/04/19, 2.4L OUT. SKIN INTACT. GENERALIZED WEAKNESS. PT STATES BLE PAIN TO TOUCH, PAIN 0/10 WHILE RESTING. IV PATENT AND INTACT. BED IN LOWEST POSITION, SIDE RAILS UP X2, CALL LIGHT WITHIN REACH. WILL CONTINUE TO MONITOR.
[2019-02-04 19:58] VITALS: BP 135/57
--- NOTE | 2019-02-05 00:25 | NUR ---
PT CURRENTLY RESTING IN BED, NO ACUTE DISTRESS. WILL CONTINUE TO MONITOR.
--- NOTE | 2019-02-05 00:42 | NUR ---
PT C/O SOB, DR TRIVEDI INFORMED. ORDERS RECEIVED, RT NOTIFIED FOR TREATMENT.
[2019-02-05 00:45] VITALS: BP 135/57
[2019-02-05 05:09] VITALS: BP 129/49
--- NOTE | 2019-02-05 06:06 | NUR ---
PT SLEPT PERIODICALL THROUGHOUT NIGHT, NO ACUTE DISTRESS. ALL NEEDS MET AND ATTENDED TO. NO SIGNIFICANT CHANGES. IV PATENT AND INTACT. MEDICATED PAIN PER EMAR. BED IN LOWEST POSITION, SIDE RAILS UP X2, CALL LIGHT WITHIN REACH. WILL ENDORSE CARE TO ONCOMING NURSE.
[2019-02-05 06:50] LABS: ALKALINE PHOSPHATASE 62 U/L (46-116); ALT/SGPT 25 U/L (14-59); AST/SGOT 16 U/L (15-37); BILIRUBIN TOTAL 0.4 mg/dL (0.20-1.00); CALCIUM 8.8 mg/dL (8.5-10.1); CARBON DIOXIDE 32.8 mmol/L (21-32); CHLORIDE SERUM 102 mmol/L (98-107); GLUCOSE SERUM 94 mg/dL (74-106); MAGNESIUM 1.7 mg/dL (1.8-2.4); PHOSPHOROUS 7.5 mg/dL (2.5-4.9); POTASSIUM SERUM 5.5 mmol/L (3.5-5.1); SODIUM SERUM 143 mmol/L (136-145); TOTAL PROTEIN, SERUM 6.6 g/dL (6.4-8.2)
[2019-02-05 06:51] LABS: ALBUMIN 3.2 g/dL (3.4-5.0); CREATININE SERUM 8.6 mg/dL (0.6-1.0)
[2019-02-05 06:54] LABS: BASOPHIL % 0.2 % (0-2); PLATELET COUNT 198 x10^3mcL (130-400)
--- NOTE | 2019-02-05 07:12 | NUR ---
RECEIVED PATIENT FROM PBX MECHANIC NURSE. PATIENT IS RESTING WITH BOTH EYES CLOSED, AROUSABLE. ON 4L OXYMIZER, RESP E/U. TELE#10, SR, HR 75. AV SHUNT NOTED TO RFA, DRESSING CDI. FALL PREC IN PLACE. IV NOTED TO LEFT HAND, SALINE LOCKED, NO S/S ERYTHEMA AT SITE. CALL LIGHT WITHIN EASY REACH. WILL CONTINUE PLAN OF CARE.
--- NOTE | 2019-02-05 08:29 | NUR ---
DR STERLING NOTIFIED OF PATIENTS AM LABS: K 5.5, PHOS 7.5 AND MAG 1.7. NO FURTHER ORDERS AT THIS TIME.
[2019-02-05 09:44] VITALS: BP 117/47
[2019-02-05 12:07] VITALS: BP 137/49
--- NOTE | 2019-02-05 14:18 | NUR ---
PATIENT UP TO BEDSIDE COMMODE. HAD SMALL BOWEL MOVEMENT AT THIS TIME. TOLERATED WELL.
[2019-02-05 16:44] VITALS: BP 128/41
--- NOTE | 2019-02-05 17:24 | NUR ---
PATIENT SITTING IN CHAIR AT BEDSIDE. TOLERATING WELL.
--- NOTE | 2019-02-05 19:30 | NUR ---
AOX4. CURRENTLY SITTING UP IN CHAIR. TELE #10, SR. LUNGS DIMINISHED TO BASES ON NC @ 2L. DENIES SOB. PULSES PALPABLE. NO EDEMA. BOWEL SOUNDS ACTIVE. ANURIC. DIALYSIS ACCESS TO JENNIFER. SKIN INTACT. DENIES PAIN. SL TO VANDANA, PATENT. BED IN LOWEST POSITION, 2 SIDE RAILS UP, CALL LIGHT IN REACH. INSTRUCTED TO CALL FOR ASSISTANCE.
[2019-02-05 19:33] VITALS: BP 142/86
--- NOTE | 2019-02-05 22:50 | NUR ---
PLACED ON CPAP AT THIS TIME BY INOCENCIO BARRY
[2019-02-06] VITALS (7 sets, daily range): BP systolic 100–145; BP diastolic 51–65
--- NOTE | 2019-02-06 01:41 | NUR ---
RESTING IN BED WITH EYES CLOSED. BREATHING E/U. ON CPAP. NO ACUTE DISTRESS NOTED. WILL CONTINUE TO MONITOR.
--- NOTE | 2019-02-06 07:40 | NUR ---
PATIENT A/OX4, ABLE TO MAKE NEEDS KNOWN AND FOLLOW COMMANDS, DENIES DIZZINESS. TELE 10 READING SR, DENIES CP. PERIPHERAL PULSES PALPABLE, MILD GENERALIZED EDEMA NOTED. LUNGS DIMINISHED BILAT, 2L NC IN PLACE O2 SAT 95%, DENIES FEELING SOB, BREATHING E/U AT REST. REPORTS OCCASIONAL DRY COUGH. BOWEL SOUDNS ACTIVE, LAST BM YESTERDAY DENIES DIARRHEA/N/V. AV SHUNT NOTED TO JENNIFER, BRUIT/THRILL NOTED. ANURIC. IV SITE TO VANDNAA, PATENT. PATIENT C/O ITCHINESS AND PAIN TO TAPED AREAS. DRESSING CHANGED TO IV SITE AND PAPER TAPE USED. CALL LIGHT WITHIN REACH AND DEMONSTRATES UNDERSTANDING ON HOW TO USE. WILL CONT TO MONITOR.
--- NOTE | 2019-02-06 09:23 | NUR ---
PATIENT C/O HEADACHE AND REQUESTING FOR TYLENOL. GIVEN AND AM DUE MEDS GIVEN, NO SIGN OF DIFFICULTY SWALLOWING OBSERVED. WILL CONT TO MONITOR.
--- NOTE | 2019-02-06 17:51 | NUR ---
HEMODIALYSIS INITIATED, PATIENT C/O HEADACHE AND SORE THROAT FROM DRY COUGH. CEPACOL AND TYLENOL GIVEN. PATIENT TO BE DISCHARGED AFTER DIALYSIS PER DR ORDER. WILL CONT TO MONITOR.
[2019-02-06 18:10] LABS: BASOPHIL % 1.4 % (0-2); PLATELET COUNT 192 x10^3mcL (130-400)
[2019-02-06 18:11] LABS: RED CELL DISTRIBUTION WIDTH 17.1 % (11.5-14.5)
[2019-02-06 18:22] LABS: ALKALINE PHOSPHATASE 78 U/L (46-116); ALT/SGPT 20 U/L (14-59); AST/SGOT 9 U/L (15-37); BILIRUBIN TOTAL 0.27 mg/dL (0.20-1.00); CALCIUM 8.7 mg/dL (8.5-10.1); CARBON DIOXIDE 26.1 mmol/L (21-32); CHLORIDE SERUM 100 mmol/L (98-107); GLUCOSE SERUM 157 mg/dL (74-106); POTASSIUM SERUM 5.1 mmol/L (3.5-5.1); SODIUM SERUM 139 mmol/L (136-145); TOTAL PROTEIN, SERUM 6.8 g/dL (6.4-8.2)
[2019-02-06 18:30] LABS: ALBUMIN 3.2 g/dL (3.4-5.0); MAGNESIUM 1.8 mg/dL (1.8-2.4)
[2019-02-06 18:32] LABS: CREATININE SERUM 9.7 mg/dL (0.6-1.0)
--- NOTE | 2019-02-06 19:57 | NUR ---
PT A/A/O X4. DENIES DIZZINESS AND HEADACHE. BREATH SOUNDS DIMINISHED ALETHEA BASES. BREATHING EVEN AND UNLABORED ON ROOM AIR, SPO2 97%. DENIES CHEST PAIN AND PRESSURE. BOWEL SOUNDS ACTIVE. NO C/O N/V AND ABDOMONIAL PAIN. PT CURRENTLY DOING HEMODIALYSIS WITH AV SHUNT NOTED ON THE RIGHT UPPER ARM. PT TOLERATING IT WELL. HEMODIALYSIS NURSE AT BEDSIDE. IV SALINE LOCK NOTED ON THE LEFT UPPER ARM. MADE PT COMFORTABLE. PLACED CALL LIGHT WITH IN REACH. WILL CONTINUE TO MONITOR.
--- NOTE | 2019-02-06 21:05 | NUR ---
PT AWAKE AND ALERT. DENIES SOB THUS FAR, SPO2 92% ON ROOM AIR. PT FINISHED HEMODIALYSIS WITH 4L OUT. PT TOLERATED IT WELL. AV SHUNT ON LUE WITH DRESSING C/D/I. WAS GIVEN HER PO NIGHT MEDICATION AND LANTUS 20 UNITS WITH BLOOD SUGAR OF 139. GAVE PT DC INSTRUCTION INCLUDING EATING A SNACK. PT AND FAMILY VERBALIZED UNDERSTANDING. IV TAKEN OF. PT TOLERATED IT WELL. PT WAS DISCHARGED VIA WHEELCHAIR ACCOMPANIED BY THE PATIENTS FAMILY AND BLASTING WORKER.
== END 2019-02-06 21:08 | disposition home or self-care (01) | DRG 291 ==
LOC: ED 05:47 → IC 08:29 → DU 08:29 → IC 09:16 → DU 02-04 18:28
PROVIDERS: Emergency Medicine; Internal Medicine Pulmonary Disease; ADMIT Internal Medicine Pulmonary Disease
DX: I13.2 Hypertensive heart and chronic kidney disease with heart failure and with stage 5 chronic kidney disease, or end stage renal disease (principal); N18.6 End stage renal disease; I50.43 Acute on chronic combined systolic (congestive) and diastolic (congestive) heart failure; G93.41 Metabolic encephalopathy; E87.5 Hyperkalemia; E11.22 Type 2 diabetes mellitus with diabetic chronic kidney disease; D63.1 Anemia in chronic kidney disease; R54 Age-related physical debility; Z95.1 Presence of aortocoronary bypass graft; Z99.2 Dependence on renal dialysis; Z79.4 Long term (current) use of insulin; Z91.15 Patient's noncompliance with renal dialysis
CPT/HCPCS: 82962; 83880; A4719; G0378; J0610; J1644; J1815; J2930; J3490; J7030; J7060; J7613; J7620; J7644; Q0092

== ENCOUNTER 2019-07-05 22:56 | Inpatient (IN) | payer OTHER ==
[~2019-07-05] VITALS: Ht 160 cm; Wt 104.3 kg
[~2019-07-05 22:56] MED LIST changes: +GOOD SENSE ASPI81 M3 PO; +LIDODERM51; +NITROGLYCERIN0.4 MG SL
[2019-07-05 23:04] VITALS: Ht 160 cm; Wt 104.3 kg
--- NOTE | 2019-07-05 23:05 | NUR ---
PT BIB [facility] FOR C/O VOMITING THAT STARTED AT APPROX 1999 TODAY. MEDICS REPORT PT HAVING APPROX 3 EPISODES OF VOMITING PRIOR TO THEIR ARRIVAL TO PT. MEDICS REPORT APPROX 2 EPISODE OF NON-BLOODY EMESIS. MEDICS REPORT THEY GAVE 8MG OF ZOFRAN ODT. PT ALSO REPORTING A COUGH X2 WEEK WITH CLEAR PHLEGM. PT DENIES ANY ABD PAIN. PT REPORT DIZZINESS AND GEN WEAKNESS. MEDICS REPORT A BG OF 255 IN THE FIELD. PT IS A/O X4. RESP ARE E/U. NO ACUTE DISTRESS NOTED. MD GARCIAS AT BEDSIDE FOR MSE.
--- NOTE | 2019-07-05 23:23 | NUR ---
LAB AT BEDSIDE TO DRAW BLOOD.
[2019-07-05 23:50] LABS: BASOPHIL % 0.1 % (0-2); PLATELET COUNT 222 x10^3mcL (130-400)
[2019-07-05 23:56] LABS: ALBUMIN 3.8 g/dL (3.4-5.0); ALKALINE PHOSPHATASE 90 U/L (46-116); ALT/SGPT 26 U/L (14-59); AST/SGOT 17 U/L (15-37); BILIRUBIN TOTAL 0.3 mg/dL (0.20-1.00); CALCIUM 9.2 mg/dL (8.5-10.1); CARBON DIOXIDE 33.2 mmol/L (21-32); CHLORIDE SERUM 101 mmol/L (98-107); GLUCOSE SERUM 239 mg/dL (74-106); POTASSIUM SERUM 5.1 mmol/L (3.5-5.1); SODIUM SERUM 142 mmol/L (136-145); TOTAL PROTEIN, SERUM 7.8 g/dL (6.4-8.2)
[2019-07-06] VITALS (9 sets, daily range): BP systolic 113–171; BP diastolic 42–80
[2019-07-06] LABS: CREATININE SERUM 6.2 mg/dL (0.6-1.0)
[2019-07-06] MEDS ORDERED: GABAPENTIN100 M2 PO (00:09)
[2019-07-06] MEDS ORDERED: LOMOTIL1 TAB PO (00:10)
[2019-07-06] MEDS ORDERED: MONTELUKAST SOD10 M1 PO (00:10)
[2019-07-06] MEDS ORDERED: MICARDIS40 MG PO (00:10)
[2019-07-06] MEDS ORDERED: MECLIZINE HYD12.5 MG (00:11)
--- NOTE | 2019-07-06 00:49 | NUR ---
REPORT GIVEN TO LEONID VILA TO ASSUME CARE OF PT.
--- NOTE | 2019-07-06 02:23 | NUR ---
RECEIVED FROM ED VIA [facility] ACCOMPANIED BY ER NURSE WITH THE CHIEF COMPLAINTS OF NAUSEA/WITH 5 EPISODES OF VOMITING AFTER HD ON 07/05/19, PT ON HD --, ALSO WITH DIZZINESS . ROUTINE ADMISSION CARE RENDERED. PLACED COMFORTABLY IN BED. VITAL SIGNS TAKENA ND RECORDED. PLACED ON TELE #16 WITH SR AT 79/MIN. DENEIS ANY CHEST PAIN/DISOCMFORT. PAIN LEVEL UPON ARRIVAL TO THE UNIT 0/10, LUNGS WITH WHEEZING BILATERAL BASES. RT ADMINISTERING BREATHING TREARMENT, ON 02 AT 2L/NC SAURATING AT 96%. HYDRALAZINE 10MG IVP GIVEN FOR XR=154/72, PRN MEDICATION.
--- NOTE | 2019-07-06 02:35 | NUR ---
C/O SEVERE BACK PAIN ON SCAL E8/10, WITH NAUSEA, MORPHINE 4MG IVP/ZOFRAN 4MG IVP GIVEN PRN MEDICATION. ASSISTE IN REPOSITIONING FOR COMFORT. PLACED CALL LIGHT WITHIN REACH, BED IN LOWEST POSITION FOR SAFETY.
--- NOTE | 2019-07-06 02:45 | NUR ---
BP CHECKED 148/72, DENIES ANY PAIN/DISCOMFORT AT THIS TIME. CALL LIGHT WITHIN REACH.
--- NOTE | 2019-07-06 05:45 | NUR ---
TOLERATED ORAL FLUIDS, NO S/S OF ASPIRATION NOTED. BLOOD SUGAR TAKEN 170MG/DL, HRI 23UNITS GIVEN SQ COVERAGE PER SLIDING SCALE. NO S/S OF GLYCEMIC REACTION. ALL NEEDS ATTENDED.
--- NOTE | 2019-07-06 08:46 | NUR ---
PATIENT IS A&OX4, COOPERATES WELL, HOWEVER DIZZINESS AT TIMES WHILE GETTING UP IN BED. TELE #16, NSR. DENIES ANY CHEST PAIN. LUNG SOUNDS AUSCULTATED TO BE DIMINISHED. ON 2L NC, DENIES SOB. NORMOACTIEV BSX4, NAUSEOUS AT TIMES. GAVE ZOFRAN AT AROUND 0830. HEMODIALYSIS PATIENT (M, W, F). GENERALIZED WEAKNESS. REQUIRES ASSITANCE GETTING UP IN BED. SKIN IS INATCT. DENIES ANY PAIN AT THIS TIME. IV SITE IS [facility]. PATIENT'S FAMILY HAS CALLED REPORTING THAT PATIENT WAS TO RECEIVE AN ULTRASOUND OF THE BLE FOR DVT. REFERRED TO CHARGE NURSE OF INQUIRIES. [place]QU[place] [facility]
--- NOTE | 2019-07-06 08:50 | NUR ---
RN [place] [facility] [place]. MARROQUIN OF FAMILY'S REQUEST OF ULTRASOUND BECAUSE PATIENT WAS TO GO TO [facility] FOR PROCEDURE. MD HAS ORDERED ULTRASOUND. NO FURTHER ORDERS AT THIS TIME.
--- NOTE | 2019-07-06 09:03 | NUR ---
RECEIVED CALL FROM LAB WITH TROPONIN LEVEL 1.051. RESULT GIVEN TO ATTENDING RN, SELENA.
--- NOTE | 2019-07-06 10:24 | NUR ---
DAUGHTER HAS ARRIVED. NOTIFIED RN THAT CT ANGIO WAS TO BE DONE AND SHE HAD AN APPOINTMENT AT [address] [facility]. WILL NOTIFY CHARGE NURSE OF DAUGHTER'S INQUIRY.
--- NOTE | 2019-07-06 15:08 | NUR ---
RH IV HAS BEEN DC DUE TO OBSTRUCTION, AND CATHETER IS INTACT. LAC IV HAS BEEN INSERTED AND FLUSHES WELL. ZOFRAN WAS GIVEN VIA THE NEW IV BECAUSE THE PATIENT WAS NAUSEOUS. WILL REASSESS IN 30 MINUTES.
--- NOTE | 2019-07-06 16:30 | NUR ---
MD DR. MARROQUIN INQUIRED ABOUT PATIENT STATUS. MD WAS ALERTED THAT TROPONIN WAS 6.660. PATIENT CONSULTED DR. LEBLANC, CARDIOLOGY. PLAN IS FOR PATIENT TO BE STARTED ON HEPARIN DRIP AND AN EKG ORDER TO BE ORDERED STAT. NO FURTHER ORDERS AT THIS TIME.
--- NOTE | 2019-07-06 17:25 | NUR ---
CALLED TO CM AND SPOKE W/ MIN AND INFORMED THAT AND WANTS TO TRANSFER PATIENT TO [facility] FOR HEART CATH. VERO COPELAND NEEDS AN AUTHORIZATION FOR TRANSFER.
--- NOTE | 2019-07-06 17:30 | NUR ---
AND HERE AND WANTS TO TRANSFER PATIENT TO [facility] FOR HEART CATH. CALLED [facility] AND HE LET ME SPOKE W/ THE CYTOPATHOLOGIST. SPOKE W/ HALLIE THE CYTOPATHOLOGIST AND REQUESTING TO FAX THE FACE SHEET AND FAX NO.[phone].
--- NOTE | 2019-07-06 18:25 | NUR ---
SPOKE W/ AND INFORMED THAT NEEDS AN AUTHORIZATION FOR TRANSFER AND DR. MARROQUIN STATED THAT TRANSFER PATIENT TOMORROW.
--- NOTE | 2019-07-06 18:49 | NUR ---
PATIENT IS CURRENTLY RECEIVED A LAB DRAW FOR PTT FOR THE HEPARIN INFUSION. PT DENIES OF CHEST PAIN AT THIS MOMENT. ALL QUESTIONS AND CONCERNS HAVE BEEN ADDRESSED. VSS. WILL CONTINUE TO MONITOR.
--- NOTE | 2019-07-06 19:54 | NUR ---
RECEIVED AWAKE STIING AT THE EDGE OF THE BED, C/O SEVERE BACK PAIN ON SCALE 8/10, RESPIRATION EVEN AND UNLABORED, BILATERAL WHEEZING HHN TREATMENT IN PROGRESS. ON TELE $16 WITH SR AT 87/MIN.DENIES ANY CHEST PAIN, PLACED CALL LIGHT WITHIN REACH. INSTRUCTED TO CALL FOR ASSISTANCE NEEDED AND VERBALZIED UNDERSTANDING.
--- NOTE | 2019-07-06 20:46 | NUR ---
CALLED AND SPOKE W/ TO AND INFORMED THAT THE PATIENT IS NOT BEING TRANSFERRED TONITE CAUSE NEED AN AUTHORIZATION FROM HER INSURANCE. MIN RUANO AWARE THAT THE PATIENT IS SCHEDULE TOMORROW AT NOON TIME FOR HEART CATH. PER HE WANTS PATIENT TRANSFER BEFORE 1100 AM.
--- NOTE | 2019-07-06 21:03 | NUR ---
PTT RESULT=45.8, HEPARIN 6200UNITS GIVEN LOADING IV DOSE, STARTED ON HEPARIN DRIP 1200 UNITS/HR=12ML/HR AFTER VERIFICATION BY JULITO PITTS. PT AWARE OF NEW MD'S ORDER. FOR PTT 6HRS AFTER INTIAL LOADING DOSE DUET 0300 AM, LAB REQUESTED.
--- NOTE | 2019-07-07 00:45 | NUR ---
EYES CLSOED, NO FACIAL GRIMACING. APPARENLY ASLEEP SOUNDLY. RESPIRATION EVEN AND UNLABORED. NO S/S OF ACUTE DISTRESS.
[2019-07-07 04:52] VITALS: BP 143/55
--- NOTE | 2019-07-07 05:00 | NUR ---
VME=511.7, HEPARIN DRIP HELD FOR IHR PER PROTOCOL. WILL ADJUST TO 900UNITS PER HR AT 0600AM
--- NOTE | 2019-07-07 06:00 | NUR ---
HEOARIN DRIP ADJUSTED TO 900 UNITS/HR=9ML/HR PER PROTOCOL , VERIFIED BY CHARGE NURSE TY, FOR PTT 4HRS AFTER ADJUSTMENT OF THE DOSE DUE AT 10 AM TODAY. LAB REQUESTED. DAWIT NPO AFTER MIDNIGHT FOR CARDIAC CATH AT [facility] AT 12NOON TODAY, TO BE TRNASFERRED BEFORE 11AM TODAY. PT APPARENTLY RESTING COMFORTABLY IN BED. ALL NEEDS ATTNEDED.
--- NOTE | 2019-07-07 07:10 | NUR ---
RECEIVED PT FROM TUB PULLER JULITO. Tony/RICKI. TELE#[id number]. PT DENIES CHEST PAIN/PRESSURE AT THIS TIME. RESPIRATIONS EQUAL AND UNLABORED ON 2L NC. DENIES SOB. IV TO LFA INFUSING HEPARIN DRIP AT 900 UNITS/HR. NO REDNESS OR SWELLING NOTED. NEXT PTT ORDERED AT 1000. RFA AV SHUNT IN PLACE, BRUIT AND THRILL NOTED. PT DENIES ANY N/V AT THIS TIME. PT AWARE OF PLAN TO TRANSFER TO [facility] FOR PROCEDURE. PT INFORMED TO REMAIN NPO UNTIL TRANSFER. PT VERBALIZED UNDERSTANDING. WILL CONTINUE TO MONITOR. CALL LIGHT IN REACH. BED IN LOWEST POSITION.
[2019-07-07 08:23] VITALS: BP 106/38
--- NOTE | 2019-07-07 08:35 | NUR ---
PT SITTING UP IN BED. NO ACUTE RESP DISTRESS NOTED ON 2L NC. PT C/O CHEST PAIN PRESSURE 10/10. MEDICATED PER EMAR. BLOOD PRESSURE CHECKED WAS 106/38, HR 74. GIVEN PO MEDS. TOLERATED WELL. IV TO LFA INFUSING HEPARIN AT 900 UNITS/HR. NO REDNESS OR SWELLING NOTED. WILL CONTINUE TO MONITOR. CALL LIGHT IN REACH. BED IN LOWEST POSITION.
--- NOTE | 2019-07-07 09:05 | NUR ---
SPOKE WITH MIN DIRECTOR TRANSLATIONAL. VERO COPELAND RECEIVED AUTHORIZATION FROM PT INSURANCE. [facility]ERO COPEL[facility] WILL ARRANGE FOR FIRST AVAILABLE TRANSPORT TODAY. VERO COPELAND WILL CALL BACK WITH BED INFORMATION.
--- NOTE | 2019-07-07 09:35 | NUR ---
REPORT GIVEN TO TAMIKO VILA AT [facility]. ALL QUESTIONS AND CONCERNS ADDRESSED. CALL BACK NUMBER PROVIDED. PT SIGNED DISCHARGE PAPERWORKED. CALLED DAUGHTER KAT TO NOTIFY HER OF TRANSFER, LEFT MESSAGE, AWAITING CALL BACK.
--- NOTE | 2019-07-07 10:53 | NUR ---
SPOKE WITH DOMINICK FROM [facility] REGARDING ETA OF TRANSPORTATION, PER DOMINICK ENERGY BROKER WAS DIVERTED FOR AN EMERGENCY CALL. ANOTHER ELECTROPHONIC ENGINEER IS IN ROUTE.
--- NOTE | 2019-07-07 10:58 | NUR ---
CALLED DR. LEBLANC REGARDING DELAY IN TRANSPORTATION, DR. LEBLANC MADE AWARE [facility] IS SENDING OUT TRANSPORT AT THIS TIME. STILL AWAITING FOR SCREEN REPAIRER CRUSHER, PER DR. LEBLANC WILL NOTIFY [facility].
--- NOTE | 2019-07-07 11:47 | NUR ---
RECEIVED PTT OF >150. HEPARIN DRIP STOPPED PER HEPARIN ORDER SHEET. CALLED TAMIKO FROM [facility]ING RN AND NOTIFIED HER OF LATEST PTT OF >150, TAMIKO MADE AWARE HEPARIN DRIP STOPPED AND NEXT PTT SHOULD BE DONE IN 2 HOURS, TAMIKO ALSO MADE AWARE PT STILL HERE AWAITING FOR TRANSPORT.
[2019-07-07 11:52] VITALS: BP 105/54
--- NOTE | 2019-07-07 11:54 | NUR ---
SPOKE WITH RAFAELA FROM [facility]. PER RAFAELA TRANSPORT ARRIVED AROUND 10 MINUTES AGO AND SHOULD BE ON THE FLOOR SOON.
[2019-07-07 11:55] LABS: CARBON DIOXIDE 29.2 mmol/L (21-32); CHLORIDE SERUM 98 mmol/L (98-107); GLUCOSE SERUM 105 mg/dL (74-106); MAGNESIUM 2.2 mg/dL (1.8-2.4); SODIUM SERUM 134 mmol/L (136-145)
[2019-07-07 12:01] LABS: CREATININE SERUM 8.5 mg/dL (0.6-1.0); POTASSIUM SERUM 5.8 mmol/L (3.5-5.1)
--- NOTE | 2019-07-07 12:06 | NUR ---
RECEIVED CRITICAL POTASSIUM OF 5.8 AND CREATININE OF 8.5. PAGED DR. LEBLANC, AWAITING CALL BACK.
--- NOTE | 2019-07-07 12:15 | NUR ---
CALLED [facility] TO NOTIFY OF CRITICAL LAB POTASSIUM OF 5.8 AND CREATININE OF 8.5. TAMIKO VILA MADE AWARE.
--- NOTE | 2019-07-07 12:25 | NUR ---
[facility] AT BEDSIDE REPORT GIVEN TO EB. ALL QUESTIONS AND CONCERNS ADDRESSED. TELE#[id number] RETURNED TO INSTRUMENT FITTERILSA MORRIS. PT TAKEN OFF FLOOR VIA [facility].
--- NOTE | 2019-07-07 13:18 | NUR ---
RECEIVED CALL FROM DR. LEBLANC. DR. LEBLANC MADE AWARE PATIENT WAS PICKED UP AT BY [facility] 1230, DR. LEBLANC MADE AWARE POTASSIUM WAS 5.8 AND CREATININE WAS 8.5.
== END 2019-07-07 12:34 | disposition short-term general hospital (02) | DRG 291 ==
LOC: ED 22:56 → DU 07-06 00:27
PROVIDERS: Emergency Medicine; ADMIT Internal Medicine Pulmonary Disease
DX: I13.2 Hypertensive heart and chronic kidney disease with heart failure and with stage 5 chronic kidney disease, or end stage renal disease (principal); N18.6 End stage renal disease; E11.22 Type 2 diabetes mellitus with diabetic chronic kidney disease; E11.65 Type 2 diabetes mellitus with hyperglycemia; I50.9 Heart failure, unspecified; J45.909 Unspecified asthma, uncomplicated; M10.9 Gout, unspecified; Z99.2 Dependence on renal dialysis; Z79.84 Long term (current) use of oral hypoglycemic drugs; Z86.73 Personal history of transient ischemic attack (TIA), and cerebral infarction without residual deficits
CPT/HCPCS: 82962; 83880; G0378; J0360; J1644; J1815; J2270; J2405; J2765; J7620; J8597; Q0092

== ENCOUNTER 2020-04-25 23:17 | Inpatient (IN) | payer OTHER ==
[~2020-04-25] VITALS: Ht 160 cm; Wt 99.5 kg
[~2020-04-25 23:17] MED LIST changes: +ACETAMINOPHEN-H1 TA1 PO; +ALBUD HHN; +ASPIRIN CHILDRE81 MG PO; +CLARITIN LIQUI-10 MG PO; +CLOPIDOGREL75 M1 PO; +IBU800 M2 PO; +MECLIZINE HYD12.5 MG; +MICARDIS40 MG PO; +MONTELUKAST SOD10 M1 PO; +RAYOS5 MG PO; +SIMVASTATIN80 M1 PO; +XAN25 PO
[2020-04-25 23:23] VITALS: Ht 160 cm; Wt 99.5 kg
[2020-04-26 01:51] LABS: PLATELET COUNT 207 x10^3mcL (130-400)
[2020-04-26 01:52] LABS: BASOPHIL % 0 % (0-2); RED CELL DISTRIBUTION WIDTH 17.9 % (11.5-14.5)
[2020-04-26 02:08] LABS: ALBUMIN 3.5 g/dL (3.4-5.0); ALKALINE PHOSPHATASE 150 U/L (46-116); ALT/SGPT 37 U/L (14-59); AST/SGOT 29 U/L (15-37); BILIRUBIN TOTAL 0.31 mg/dL (0.20-1.00); CALCIUM 9.5 mg/dL (8.5-10.1); CARBON DIOXIDE 29.3 mmol/L (21-32); CHLORIDE SERUM 97 mmol/L (98-107); GLUCOSE SERUM 128 mg/dL (74-106); POTASSIUM SERUM 4.1 mmol/L (3.5-5.1); SODIUM SERUM 139 mmol/L (136-145); TOTAL PROTEIN, SERUM 7.8 g/dL (6.4-8.2)
[2020-04-26 02:13] LABS: CREATININE SERUM 6.9 mg/dL (0.6-1.0)
[2020-04-26] MEDS ORDERED: NEURONTIN100 MG PO (04:23)
[2020-04-26] MEDS ORDERED: ULTRAM50 MG PO (04:24)
[2020-04-26] MEDS ORDERED: DSS100 MG PO (04:25)
[2020-04-26 06:13] VITALS: BP 122/87
[2020-04-26 08:39] VITALS: BP 114/79
[2020-04-26 12:41] VITALS: BP 84/39
[2020-04-26 15:18] VITALS: BP 87/34
[2020-04-26 17:18] VITALS: BP 92/35
[2020-04-26 20:58] VITALS: BP 80/20
[2020-04-27] VITALS (7 sets, daily range): BP systolic 88–128; BP diastolic 30–66
[2020-04-27 07:11] LABS: BASOPHIL % 0.3 % (0-2); PLATELET COUNT 225 x10^3mcL (130-400)
[2020-04-27 07:49] LABS: ALKALINE PHOSPHATASE 113 U/L (46-116); ALT/SGPT 26 U/L (14-59); AST/SGOT 17 U/L (15-37); CALCIUM 8.3 mg/dL (8.5-10.1); CARBON DIOXIDE 25.7 mmol/L (21-32); CHLORIDE SERUM 100 mmol/L (98-107); POTASSIUM SERUM 4.2 mmol/L (3.5-5.1); SODIUM SERUM 138 mmol/L (136-145); TOTAL PROTEIN, SERUM 6.2 g/dL (6.4-8.2)
[2020-04-27 07:51] LABS: ALBUMIN 2.7 g/dL (3.4-5.0); CREATININE SERUM 8.2 mg/dL (0.6-1.0); GLUCOSE SERUM 57 mg/dL (74-106)
[2020-04-27 13:07] LABS: BASOPHIL % 0.3 % (0-2); PLATELET COUNT 235 x10^3mcL (130-400)
[2020-04-27 13:27] LABS: RED CELL DISTRIBUTION WIDTH 17.9 % (11.5-14.5)
[2020-04-27 22:51] LABS: BASOPHIL % 0.3 % (0-2); PLATELET COUNT 224 x10^3mcL (130-400); RED CELL DISTRIBUTION WIDTH 17.6 % (11.5-14.5)
[2020-04-28 05:35] VITALS: BP 108/86
[2020-04-28 06:29] LABS: BASOPHIL % 0.1 % (0-2); PLATELET COUNT 228 x10^3mcL (130-400)
[2020-04-28 06:46] LABS: ALKALINE PHOSPHATASE 100 U/L (46-116); ALT/SGPT 17 U/L (14-59); AST/SGOT 12 U/L (15-37); BILIRUBIN TOTAL 0.23 mg/dL (0.20-1.00); CALCIUM 7.7 mg/dL (8.5-10.1); CHLORIDE SERUM 103 mmol/L (98-107); GLUCOSE SERUM 367 mg/dL (74-106); POTASSIUM SERUM 3.7 mmol/L (3.5-5.1); SODIUM SERUM 139 mmol/L (136-145)
[2020-04-28 06:57] LABS: ALBUMIN 2.3 g/dL (3.4-5.0); CREATININE SERUM 5.5 mg/dL (0.6-1.0); TOTAL PROTEIN, SERUM 5.7 g/dL (6.4-8.2)
[2020-04-28 07:02] LABS: RED CELL DISTRIBUTION WIDTH 17.6 % (11.5-14.5)
[2020-04-28 08:00] VITALS: BP 140/61
[2020-04-28 12:25] VITALS: BP 141/35
[2020-04-28 12:44] LABS: BASOPHIL % 0.9 % (0-2); PLATELET COUNT 246 x10^3mcL (130-400)
[2020-04-28 12:48] LABS: RED CELL DISTRIBUTION WIDTH 17.9 % (11.5-14.5)
[2020-04-28 16:35] VITALS: BP 126/38
[2020-04-29 06:27] LABS: BASOPHIL % 0.2 % (0-2); PLATELET COUNT 263 x10^3mcL (130-400)
[2020-04-29 06:28] LABS: RED CELL DISTRIBUTION WIDTH 17.9 % (11.5-14.5)
[2020-04-29 07:07] LABS: ALKALINE PHOSPHATASE 92 U/L (46-116); ALT/SGPT 16 U/L (14-59); AST/SGOT 10 U/L (15-37); BILIRUBIN TOTAL 0.23 mg/dL (0.20-1.00); CALCIUM 8.3 mg/dL (8.5-10.1); CARBON DIOXIDE 27.4 mmol/L (21-32); CHLORIDE SERUM 102 mmol/L (98-107); GLUCOSE SERUM 120 mg/dL (74-106); POTASSIUM SERUM 3.7 mmol/L (3.5-5.1); SODIUM SERUM 139 mmol/L (136-145)
[2020-04-29 07:25] LABS: ALBUMIN 2.5 g/dL (3.4-5.0)
[2020-04-29 07:40] VITALS: BP 103/37
[2020-04-29 16:42] VITALS: BP 141/53
[2020-04-29 20:35] VITALS: BP 145/49
[2020-04-30 06:12] VITALS: BP 133/36
[2020-04-30 07:19] LABS: ALKALINE PHOSPHATASE 87 U/L (46-116); ALT/SGPT 14 U/L (14-59); AST/SGOT 14 U/L (15-37); BILIRUBIN TOTAL 0.34 mg/dL (0.20-1.00); CALCIUM 8.6 mg/dL (8.5-10.1); CARBON DIOXIDE 33.3 mmol/L (21-32); CHLORIDE SERUM 99 mmol/L (98-107); GLUCOSE SERUM 112 mg/dL (74-106); POTASSIUM SERUM 3.3 mmol/L (3.5-5.1); SODIUM SERUM 136 mmol/L (136-145); TOTAL PROTEIN, SERUM 6.2 g/dL (6.4-8.2)
[2020-04-30 07:21] LABS: ALBUMIN 2.6 g/dL (3.4-5.0)
[2020-04-30 07:22] LABS: CREATININE SERUM 5.2 mg/dL (0.6-1.0)
[2020-04-30 09:43] VITALS: BP 121/26
[2020-04-30 12:56] VITALS: BP 133/25
[2020-04-30 16:40] VITALS: BP 155/34
[2020-04-30 22:25] VITALS: BP 110/57
[2020-05-01 06:09] VITALS: BP 162/55
[2020-05-01 08:24] VITALS: BP 145/45
[2020-05-01 09:17] LABS: ALKALINE PHOSPHATASE 79 U/L (46-116); ALT/SGPT 12 U/L (14-59); AST/SGOT 14 U/L (15-37); BILIRUBIN TOTAL 0.3 mg/dL (0.20-1.00); CALCIUM 8.4 mg/dL (8.5-10.1); CARBON DIOXIDE 34.7 mmol/L (21-32); CHLORIDE SERUM 98 mmol/L (98-107); GLUCOSE SERUM 109 mg/dL (74-106); POTASSIUM SERUM 4.3 mmol/L (3.5-5.1); SODIUM SERUM 138 mmol/L (136-145)
[2020-05-01 09:18] LABS: ALBUMIN 2.7 g/dL (3.4-5.0); CREATININE SERUM 6.7 mg/dL (0.6-1.0); TOTAL PROTEIN, SERUM 5.5 g/dL (6.4-8.2)
[2020-05-01] MEDS ORDERED: PROA PO (09:37)
[2020-05-01 12:15] VITALS: BP 156/54
[2020-05-01 16:18] VITALS: BP 134/82
[2020-05-01 19:17] VITALS: BP 141/49
[2020-05-01 19:40] VITALS: BP 130/79
[2020-05-02 04:46] VITALS: BP 127/47
[2020-05-02 07:52] VITALS: BP 141/40
[2020-05-02 16:59] VITALS: BP 128/71
[2020-05-02 17:08] VITALS: BP 128/71
== END 2020-05-02 18:14 | disposition home health service (06) | DRG 377 ==
LOC: ED 23:17 → MU 04-26 03:55 → DU 04-26 03:55 → MU 04-26 03:55 → DU 04-26 04:50 → MU 04-26 06:12 → IC 04-27 13:21 → DU 04-29 07:39
PROVIDERS: Emergency Medicine; ADMIT Hospitalist; ATTEND Internal Medicine
PROC: 5A1D70Z Performance of Urinary Filtration, Intermittent, Less than 6 Hours Per Day (ICD-10-PCS; principal; 2020-04-27)
PROC: 02HV33Z Insertion of Infusion Device into Superior Vena Cava, Percutaneous Approach (ICD-10-PCS; 2020-04-27)
PROC: B548ZZA Ultrasonography of Superior Vena Cava, Guidance (ICD-10-PCS; 2020-04-27)
PROC: 5A1D70Z Performance of Urinary Filtration, Intermittent, Less than 6 Hours Per Day (ICD-10-PCS; 2020-04-29)
PROC: 5A1D70Z Performance of Urinary Filtration, Intermittent, Less than 6 Hours Per Day (ICD-10-PCS; 2020-05-01)
DX: K92.2 Gastrointestinal hemorrhage, unspecified (principal); N18.6 End stage renal disease; I12.0 Hypertensive chronic kidney disease with stage 5 chronic kidney disease or end stage renal disease; F05 Delirium due to known physiological condition; Z20.828 Contact with and (suspected) exposure to other viral communicable diseases; Z88.6 Allergy status to analgesic agent; J45.909 Unspecified asthma, uncomplicated; Z86.73 Personal history of transient ischemic attack (TIA), and cerebral infarction without residual deficits; E78.5 Hyperlipidemia, unspecified; E11.22 Type 2 diabetes mellitus with diabetic chronic kidney disease; Z99.2 Dependence on renal dialysis; F03.90 Unspecified dementia, unspecified severity, without behavioral disturbance, psychotic disturbance, mood disturbance, and anxiety; D63.1 Anemia in chronic kidney disease; E86.0 Dehydration; J44.9 Chronic obstructive pulmonary disease, unspecified; I25.10 Atherosclerotic heart disease of native coronary artery without angina pectoris; I95.9 Hypotension, unspecified; F41.9 Anxiety disorder, unspecified; E11.51 Type 2 diabetes mellitus with diabetic peripheral angiopathy without gangrene
CPT/HCPCS: 82962; G0378; J0696; J1720; J2405; J3490; J7030; J7040; J7042; J7050; Q0092